=== PATIENT | male | born 1960 | race Caucasian/White ===

== ENCOUNTER 2016-10-04 15:05 | Emergency (ER) | payer SELFPAY ==
[~2016-10-04] VITALS: Ht 182.9 cm; Wt 75.0 kg
[~2016-10-04 15:05] MED LIST: ADVAI500I PO; IPRAAER IN; PRED20 PO; VENTAER INH; ZITH250T PO
[2016-10-04 15:07] VITALS: BP 153/70; PULSE 99; RESP 16; TEMP 97.8; O2SAT 97
[2016-10-04 15:57] VITALS: BP 121/71; PULSE 100; PULSE 96; RESP 16; O2SAT 98
[2016-10-04] MEDS ORDERED: CEPH-460 PO (16:12)
[2016-10-04] MEDS ORDERED: BACT800T5 PO (16:12)
--- NOTE | 2016-10-04 16:12 | PD ---
HPI Chief Complaint: Cold / Flu Symptoms Time Seen by Provider: 16:02 Travel History International Travel<30 days: No Contact w/Intl Traveler<30days: No Traveled to known affect area: No History of Present Illness HPI This is a 56-year-old male who presents to the emergency department with 1 week of intermittent fevers and chills, feeling sweaty particularly at night, constant, not going away. He also noticed that he has a sore on his left buttock. One week ago he sliced it open with a utility knife and has been draining pus ever since then he's been squeezing it. He denies any history of diabetes but he does have a history of COPD. He says he's been breathing normally. He's had no cough, rhinorrhea, abdominal pain or vomiting. He is a thin person and always has had trouble gaining weight but he denies any recent weight loss. PFSH Past Medical History Asthma: Yes Anxiety: No Depression: Yes Cancer: No Cardiovascular Problems: No COPD: Yes Diabetes: No Diminished Hearing: No Endocrine: No Gastrointestinal Disorders: Yes Genitourinary: No Immune Disorder: No Implanted Vascular Access Dvce: No Musculoskeletal: No Neurologic: No Psychiatric: Yes Reproductive: No Respiratory: Yes (ASTHMA, COPD) Sleep Apnea: No Influenza Vaccination: Yes Past Surgical History Abdominal Surgery: Yes (appendectomy) AICD: No Appendectomy: Yes Arteriovenous Shunt: No Cardiac Surgery: No Ear Surgery: No Endocrine Surgery: No Eye Surgery: No Genitourinary Surgery: No Gynecologic Surgery: No Insulin Pump: No Joint Replacement: No Neurologic Surgery: No Oral Surgery: Yes Pacemaker: No Thoracic Surgery: No Tonsillectomy: Yes Other Surgery: Yes (FOREHEAD SKELETAL SURGERY) Social History Alcohol Use: Yes (EVERYDAY ) Tobacco Use: Yes (/ PPD) Substance Use: No Allergies-Medications (Allergen,Severity, Reaction): Coded Allergies: No Known Allergies (Verified , 10/04/16) Reported Meds & Prescriptions Reported Meds & Active Scripts Active Review of Systems Except as stated in HPI: all other systems reviewed are Neg Physical Exam Narrative GENERAL:Well appearing, no acute distress SKIN: 3 cm abscess on the left buttock with some macerated tissue actively draining some purulent drainage HEAD: Atraumatic. Normocephalic. EYES: Pupils equal and round. No injection or drainage. ENT: Moist mucous membranes NECK: Trachea midline. CARDIOVASCULAR: Regular rate and rhythm. No murmur appreciated. RESPIRATORY: Clear to auscultation. Breath sounds equal bilaterally. GASTROINTESTINAL: Abdomen soft, non-tender, nondistended. MUSCULOSKELETAL: No obvious deformities. NEUROLOGICAL: Awake and alert. No obvious cranial nerve deficits. Moving all extremities. PSYCHIATRIC: Appropriate mood and affect; insight and judgment normal. Data Data Last Documented VS Vital Signs Date Time Temp Pulse Resp B/P Pulse Ox O2 Delivery O2 Flow Rate FiO2 10/04/16 15:57 96 16 121/71 98 Room Air 10/04/16 15:07 97.8 [facility] Medical Decision Making Medical Screen Exam Complete: Yes Emergency Medical Condition: Yes Interpretation(s) Afebrile, mild tachycardia, mild hypertension Differential Diagnosis Abscess, cellulitis, influenza Narrative Course This is a 56-year-old male who presents to the emergency department with subjective fevers and chills. He has evidence of an abscess on the left buttocks which has been incised by him. He has some purulent drainage. I sent a wound culture. I think the patient would benefit from antibiotic therapy. He will be discharged home as he is otherwise nontoxic appearing. Diagnosis Primary Impression: Abscess Patient Instructions: General Instructions Additional Instructions: If you develop fever, increasing redness, warmth, or spreading of your infection , or severe pain return to the emergency department immediately as you may require antibiotics through your IV. Complete your course of antibiotics as prescribed. Med/Other Pt SpecificInfo: Prescription(s) given Scripts Sulfamethoxazole-Trimethoprim (Bactrim DS)800-160 Mg Tab1 Tab PO BID 7 Days Ref 0 Prov:Audra Perez MD 10/04/16 Cephalexin (Keflex)500 Mg Cgy133 Mg PO Q6H 7 Days Ref 0 Prov:Audra Perez MD 10/04/16 Disposition: 01 DISCHARGE HOME Condition: Stable Audra Perez MD Oct 04, 2016 16:12
== END 2016-10-04 16:52 | disposition home or self-care (01) ==
LOC: NEPC 15:05
DX: L02.31 Cutaneous abscess of buttock (principal); B95.62 Methicillin resistant Staphylococcus aureus infection as the cause of diseases classified elsewhere; J45.909 Unspecified asthma, uncomplicated; F17.210 Nicotine dependence, cigarettes, uncomplicated
CPT/HCPCS: 86403; 87070; 87186; 87205; 99283

== ENCOUNTER 2017-10-11 08:22 | Emergency (ER) | payer SELFPAY ==
[~2017-10-11] VITALS: Ht 182.9 cm; Wt 76.0 kg
[~2017-10-11 08:22] MED LIST changes: -ADVAI500I PO; +BACT800T5 PO; +CEPH-460 PO; -IPRAAER IN; -PRED20 PO; -VENTAER INH; -ZITH250T PO
[2017-10-11 08:27] VITALS: BP 136/72; PULSE 84; RESP 17; TEMP 97.2; O2SAT 98
[2017-10-11 09:20] LABS: BACTERIA, URINE MANY /hpf; BILIRUBIN, URINE NEG (NEG); BLOOD, URINE NEG (NEG); GLUCOSE,URINE NEG (NEG); KETONE, URINE NEG (NEG); NITRITE,URINE NEG (NEG); URINE COLOR YELLOW (YELLW/STRAW); URINE LEUKOCYTE ESTERASE LARGE (NEG)
[2017-10-11] MEDS ORDERED: BACT800T5 PO (09:59)
--- NOTE | 2017-10-11 09:59 | PD ---
HPI Chief Complaint: Complaint Time Seen by Provider: 09:54 Travel History International Travel<30 days: No Contact w/Intl Traveler<30days: No Traveled to known affect area: No History of Present Illness HPI 57-year-old male complains of urinary frequency and dysuria. He has had UTIs previously and reports that symptoms are similar today. He reports some cold sweats and fevers at night. No vomiting. Location genitourinary. No modifying factor. Symptom duration is been about 3 days. PFSH Past Medical History Asthma: Yes Anxiety: No Depression: Yes Cancer: No Cardiovascular Problems: No COPD: Yes Diabetes: No Diminished Hearing: No Endocrine: No Gastrointestinal Disorders: Yes Genitourinary: No Immune Disorder: No Implanted Vascular Access Dvce: No Musculoskeletal: No Neurologic: No Psychiatric: Yes Reproductive: No Respiratory: Yes (ASTHMA, COPD) Sleep Apnea: No Past Surgical History Abdominal Surgery: Yes (appendectomy) AICD: No Appendectomy: Yes Arteriovenous Shunt: No Cardiac Surgery: No Ear Surgery: No Endocrine Surgery: No Eye Surgery: No Genitourinary Surgery: No Gynecologic Surgery: No Insulin Pump: No Joint Replacement: No Neurologic Surgery: No Oral Surgery: Yes Pacemaker: No Thoracic Surgery: No Tonsillectomy: Yes Other Surgery: Yes (FOREHEAD SKELETAL SURGERY) Social History Alcohol Use: Yes (EVERYDAY ) Tobacco Use: Yes (/ PPD) Substance Use: No Allergies-Medications (Allergen,Severity, Reaction): Coded Allergies: *MDRO Multi-Drug Resistant Organism (Verified Adverse Reaction, Unknown, ) 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 HEAD: Atraumatic. Normocephalic. EYES: Pupils equal and round. No scleral icterus. No injection or drainage. ENT: No nasal bleeding or discharge. Mucous membranes pink and moist. NECK: Trachea midline. No JVD. CARDIOVASCULAR: Regular rate and rhythm. RESPIRATORY: No accessory muscle use. Clear to auscultation. Breath sounds equal bilaterally. GASTROINTESTINAL: No flank tenderness. No distension. MUSCULOSKELETAL: Extremities without clubbing, cyanosis, or edema. No obvious deformities. NEUROLOGICAL: Awake and alert. No obvious cranial nerve deficits. Motor grossly within normal limits. Five out of 5 muscle strength in the arms and legs. Normal speech. PSYCHIATRIC: Appropriate mood and affect; insight and judgment normal. Data Data Last Documented VS Vital Signs Date Time Temp Pulse Resp B/P (MAP) Pulse Ox O2 Delivery O2 Flow Rate FiO2 10/11/17 08:27 97.2 84 17 136/72 (93) 98 Orders Orders Urinalysis - C+S If Indicated (10/11/17 08:30) Urine Culture (10/11/17 08:34) Labs Laboratory Tests Test 10/11/17 08:34 Urine Color YELLOW Urine Turbidity CLEAR Urine pH 6.0 Urine Specific [place] 1.031 Urine Protein TRACE mg/dL Urine Glucose (UA) NEG mg/dL Urine Ketones NEG mg/dL Urine Occult Blood NEG Urine Nitrite NEG Urine Bilirubin NEG Urine Urobilinogen 2.0 MG/DL Urine Leukocyte Esterase LARGE Urine RBC 6 /hpf Urine WBC 52 /hpf Urine Bacteria MANY /hpf Microscopic Urinalysis Comment CULTURE INDICATED MDM Medical Decision Making Medical Screen Exam Complete: Yes Emergency Medical Condition: Yes Medical Record Reviewed: Yes Differential Diagnosis UTI, pyelo, sepsis Narrative Course Pt has UTI Diagnosis Primary Impression: UTI (urinary tract infection) Qualified Codes: N39.0 - Urinary tract infection, site not specified Referrals: [facility] 2 days Med/Other Pt SpecificInfo: Prescription(s) given Scripts Sulfamethoxazole-Trimethoprim (Bactrim DS) 800-160 Mg Tab 1 TAB PO BID for Infection for 7 Days, TAB 0 Refills Prov: Pancho Loving MD 10/11/17 Disposition: 01 DISCHARGE HOME Condition: Stable Pancho Loving MD Oct 11, 2017 09:59
[2017-10-11 10:10] VITALS: BP_SYST 120; BP_SYST 130; BP_DIAS 75; BP_DIAS 83; PULSE 72; RESP 20; TEMP 98.6; O2SAT 100
== END 2017-10-11 10:10 | disposition home or self-care (01) ==
LOC: NEPD 08:22
DX: N39.0 Urinary tract infection, site not specified (principal); B96.20 Unspecified Escherichia coli [E. coli] as the cause of diseases classified elsewhere; R50.9 Fever, unspecified; J44.9 Chronic obstructive pulmonary disease, unspecified; Z72.0 Tobacco use; Z88.2 Allergy status to sulfonamides
CPT/HCPCS: 81001; 87077; 87086; 87186; 99283